=== PATIENT | male | born 1955 | race Caucasian/White ===

== ENCOUNTER 2022-05-06 01:00 | Day surgery (SDC) | payer OTHER, SELFPAY ==
[2022-04-26 12:18] VITALS: BMI 34.1
--- NOTE | 2022-05-05 15:00 | PM.HPGS ---
History of Present Illness History of Present Illness Consent: Risks, benefits, and alternatives have been discussed and questions answered. Patient agrees to proceed with procedure. Chief complaint: hx of colon polyps Narrative: Nicolas Rivas is a 66 year old male was referred for colon cancer screening. He has a family history of colon polyps, his brother. Review of Systems Review of Systems: All systems reviewed & are unremarkable except as noted in HPI and below PMFSH Social History Social History Smoking packs per day: 1 Smoking cigarettes per day: 20.0 Years smoked: 7 Smoking pack-years: 7.00 Smoking status: Former smoker Tobacco type: cigarettes Alcohol intake: former Substance use: never Substance use type: does not use Living arrangements: with family Spiritual care concerns: No Meds Home Medications and Allergies Home Medications Medication Instructions Recorded Confirmed Type fluoxetine 10 mg capsule 10 mg PO DAILY 04/25/22 05/06/22 History levothyroxine 200 mcg tablet 200 mcg PO DAILY 04/25/22 05/06/22 History lisinopril 20 12.5 tablet PO DAILY 04/25/22 05/06/22 History mg-hydrochlorothiazide 12.5 mg tablet simvastatin 40 mg tablet 40 mg PO DAILY 04/25/22 05/06/22 History Allergies Allergy/AdvReac Type Severity Reaction Status Date / Time No Known Allergies Allergy Verified 05/06/22 09:35 Exam Resp: Auscultation: clear to auscultation bilaterally Cardio: Rate: regular rate Rhythm: regular rhythm GI: GI Palp: Yes Soft to palpation and No Tenderness to palpation present (GI) Assessment and Plan Assessment and plan (1) Colon cancer screening: Code(s): Z12.11 - Encounter for screening for malignant neoplasm of colon Status: Acute Assessment and Plan: Colonoscopy with possible biopsy or polypectomy or cautery or injection of substances.
[2022-05-06 09:22] VITALS: BP 152/84; PULSE 76; RESP 18; TEMP 36.7; O2SAT 99; BMI 32.5
[2022-05-06] MEDS: LACTATED RINGERS 1,000 ML 150 ML IV CONT (09:44)
[2022-05-06] MEDS: SIMETHICONE ORAL SUSPENSION 20 MG/0.3 ML 30 ML BOTTLE 0.6 ML IRRIGATION (10:42)
--- NOTE | 2022-05-06 10:44 | WPDANESEPPF ---
Anes - Initial Pre Proc Eval Procedure: Operation Date: 05/06/22 10:45 Proposed Procedures p Screening Colonoscopy - Jony Rowland MD Date/Time: 05/06/22 10:44 Surgeon: Jony Rowland MD Pre Op Diagnosis: hx of colon polyps Patient Data Age: 66 Gender: M Height: 1.88 m Weight: 114.9 kg Last Vital Signs Temp 98.0 F 05/06/22 09:22 Pulse 76 05/06/22 09:22 Resp 18 05/06/22 09:22 BP 152/84 H 05/06/22 09:22 Pulse Ox 99 05/06/22 09:22 O2 Del Method Room Air 05/06/22 09:22 Allergies Allergy/AdvReac Type Severity Reaction Status Date / Time No Known Allergies Allergy Verified 05/06/22 09:35 Home Medications Medication Instructions Recorded Confirmed Type fluoxetine 10 mg capsule 10 mg PO DAILY 04/25/22 05/06/22 History levothyroxine 200 mcg tablet 200 mcg PO DAILY 04/25/22 05/06/22 History lisinopril 20 12.5 tablet PO DAILY 04/25/22 05/06/22 History mg-hydrochlorothiazide 12.5 mg tablet simvastatin 40 mg tablet 40 mg PO DAILY 04/25/22 05/06/22 History Patient hx anesthesia problems: none Family hx anesthesia problems: none Results Review: All pre-operative results and documents have been reviewed as part of the pre-operative evaluation. [facility], [facility] Social History Social History Smoking packs per day: 1 Smoking cigarettes per day: 20.0 Years smoked: 7 Smoking pack-years: 7.00 Smoking status: Former smoker Tobacco type: cigarettes Alcohol intake: former Substance use: never Substance use type: does not use Living arrangements: with family Spiritual care concerns: No Anes - Eval Final PreProcedure Day of Procedure 05/06/22 10:44 Patient weight: obese Heart: regular rate and rhythm Lungs: clear to auscultation Airway: Mallampati scale class II Neurological: alert and oriented Last oral intake: >/= 8 hours ASA classification: III Emergent: no Anesthetic plan: proceed Anesthesia type and monitoring: general GIVS and standard monitoring Results Review: All pre-operative results and documents have been reviewed as part of the pre-operative evaluation. Informed Consent: The patient's anesthetic plan and its attendant risks and benefits were discussed with the patient/family/POA. Questions were solicited and answers provided to the satisfaction of the patient/family/POA.
[2022-05-06 10:51] VITALS: BP 109/63; PULSE 64; RESP 17; O2SAT 95
[2022-05-06 11:01] VITALS: BP 112/69; PULSE 73; RESP 21; O2SAT 99
[2022-05-06 11:11] VITALS: BP 133/78; PULSE 66; RESP 16; O2SAT 99
== END 2022-05-06 11:13 | disposition home or self-care (01) ==
PROVIDERS: PCP Internal Medicine; Visit Provider Internal Medicine Gastroenterology
PROC: 0DJD8ZZ Inspection of Lower Intestinal Tract, Via Natural or Artificial Opening Endoscopic (ICD-10-PCS; CPT 45378; principal; 2022-05-06 10:45)
DX: Z12.11 Encounter for screening for malignant neoplasm of colon (principal); Z83.71 Family history of colonic polyps; Z87.891 Personal history of nicotine dependence; E66.9 Obesity, unspecified; Z68.32 Body mass index [BMI] 32.0-32.9, adult
CPT/HCPCS: 45378; J2704; J7120